=== PATIENT | female | born 1935 | race African-American/Black ===

== ENCOUNTER → 2016-09-05 | Outpatient (CLI) | payer MEDICARE, OTHER ==
[~2016-09-05] MED LIST: ADVI200C9 PO; ALPR0.5T99 PO; FEXO60TA PO; IRONTAB5 PO; NORV2.5T11 PO; OMEP20CA5 PO; OYST500T77 PO; TAB-TAB PO; TAMO10TA2 PO; VITA500T10 PO; VYTO10TA32 PO
[2016-09-05 10:51] LABS: ANION GAP 8 MEQ/L (5-15); AST (GOT) 16 U/L (15-37); BICARBONATE 28.9 MEQ/L (21.0-32.0); BLOOD UREA NITROGEN 16 MG/DL (7-18); CHLORIDE 101 MEQ/L (98-107); GLOMERULAR FILTRATION RATE 50 ML/MIN (>89); GLUCOSE,FASTING 105 MG/DL (74-99); POTASSIUM 3.8 MEQ/L (3.5-5.1); SODIUM (NA) 138 MEQ/L (136-145)
[2016-09-05 11:01] LABS: ALKALINE PHOSPHATASE 99 U/L (45-117); ALT (GPT) 19 U/L (10-53); HDL CHOLESTEROL 46.3 MG/DL (40.0-60.0); LDL CHOLESTEROL 81 MG/DL (0-99); TOTAL BILIRUBIN ADULT 0.4 MG/DL (0.2-1.0)
== END ==
LOC: CLAB 10:05
PROVIDERS: ATTEND Family Medicine
DX: E78.5 Hyperlipidemia, unspecified (principal)
CPT/HCPCS: 36415; 80053; 80061; 84443

== ENCOUNTER → 2017-04-22 | Outpatient (CLI) | payer MEDICARE, OTHER ==
[2017-04-22 10:21] LABS: ANION GAP 8 MEQ/L (5-15); AST (GOT) 17 U/L (15-37); BICARBONATE 27.1 MEQ/L (21.0-32.0); BLOOD UREA NITROGEN 19 MG/DL (7-18); CHLORIDE 101 MEQ/L (98-107); GLOMERULAR FILTRATION RATE 60 ML/MIN (>89); GLUCOSE,FASTING 105 MG/DL (74-99); POTASSIUM 3.5 MEQ/L (3.5-5.1); SODIUM (NA) 136 MEQ/L (136-145)
[2017-04-22 10:25] LABS: ALKALINE PHOSPHATASE 101 U/L (45-117); ALT (GPT) 22 U/L (10-53); HDL CHOLESTEROL 50.4 MG/DL (40.0-60.0); LDL CHOLESTEROL 73 MG/DL (0-99); TOTAL BILIRUBIN ADULT 0.4 MG/DL (0.2-1.0)
== END ==
LOC: CLAB 09:18
PROVIDERS: ATTEND Family Medicine
DX: I10 Essential (primary) hypertension (principal); E78.5 Hyperlipidemia, unspecified
CPT/HCPCS: 36415; 80053; 80061

== ENCOUNTER → 2017-10-21 | Outpatient (CLI) | payer MEDICARE, OTHER ==
[2017-10-21 09:25] LABS: AUTOMATED NEUTROPHIL # 5.1 TH/MM3 (1.8-7.7); BASOPHIL % 0.6 % (0.0-2.0); EOSINOPHIL # 0.6 TH/MM3 (0-0.4); EOSINOPHIL % 7.5 % (0.0-4.0); HEMATOCRIT 34.5 % (35.0-46.0); HEMOGLOBIN 11.5 GM/DL (11.6-15.3); LYMPH % 20.9 % (9.0-44.0); LYMPHOCYTE # 1.7 TH/MM3 (1.0-4.8); MEAN CELL VOLUME 92.2 FL (80.0-100.0); MEAN CORPUSCULAR HEMOGLOBIN 30.9 PG (27.0-34.0); MEAN CORPUSCULAR HGB CONC 33.5 % (32.0-36.0); MEAN PLATELET VOLUME 8.7 FL (7.0-11.0); MONO % 7.1 % (0.0-8.0); MONOCYTE # 0.6 TH/MM3 (0-0.9); NEUT % 63.9 % (16.0-70.0); PLATELET COUNT 302 TH/MM3 (150-450); RED BLOOD COUNT 3.73 MIL/MM3 (4.00-5.30); RED CELL DISTRIBUTION WIDTH 15.6 % (11.6-17.2); WHITE BLOOD COUNT 7.9 TH/MM3 (4.0-11.0)
[2017-10-21 09:37] LABS: ALBUMIN 3.6 GM/DL (3.4-5.0); BICARBONATE 31.9 MEQ/L (21.0-32.0); BLOOD UREA NITROGEN 14 MG/DL (7-18); CALCIUM 9.4 MG/DL (8.5-10.1); CHLORIDE 101 MEQ/L (98-107); CREATININE 1.07 MG/DL (0.50-1.00); GLOMERULAR FILTRATION RATE 59 ML/MIN (>89); GLUCOSE,FASTING 102 MG/DL (74-99); SODIUM (NA) 138 MEQ/L (136-145)
[2017-10-21 09:38] LABS: ALT (GPT) 17 U/L (10-53); AST (GOT) 19 U/L (15-37); CHOLESTEROL 123 MG/DL (120-200); TRIGLYCERIDES 107 MG/DL (42-150)
[2017-10-21 10:03] LABS: ALKALINE PHOSPHATASE 100 U/L (45-117); CHOLESTEROL/ HDL RATIO 2.78 RATIO; HDL CHOLESTEROL 44.1 MG/DL (40.0-60.0); LDL CHOLESTEROL 58 MG/DL (0-99); TOTAL BILIRUBIN ADULT 0.3 MG/DL (0.2-1.0); TOTAL PROTEIN 8.7 GM/DL (6.4-8.2)
[2017-10-21 10:07] LABS: FOLATE GREATER THAN 20.0 NG/ML (3.1-17.5)
[2017-10-21 15:03] LABS: HEMOGLOBIN A1C 6.1 % (4.3-6.0)
== END ==
LOC: CLAB 08:45
PROVIDERS: ATTEND Family Medicine
DX: R41.3 Other amnesia (principal); I10 Essential (primary) hypertension; R73.9 Hyperglycemia, unspecified
CPT/HCPCS: 36415; 80053; 80061; 82607; 82746; 83036; 84443; 85025; 86592

== ENCOUNTER 2017-11-29 15:18 | Emergency (ER) | payer MEDICARE, OTHER ==
[~2017-11-29] VITALS: Ht 162.6 cm; Wt 94.9 kg
[2017-11-29 15:21] VITALS: BP 138/64; PULSE 100; RESP 18; TEMP 97.9; O2SAT 95
[2017-11-29 15:50] VITALS: O2SAT 96
[2017-11-29] MEDS ORDERED: AMOX250S22 PO (15:56)
--- NOTE | 2017-11-29 15:58 | PD ---
HPI Chief Complaint: Skin Problem Time Seen by Provider: 15:40 Travel History International Travel<30 days: No Contact w/Intl Traveler<30days: No Traveled to known affect area: No History of Present Illness HPI Patient 81-year-old female with a history of carpal tunnel release in the left wrist presents emergency department with right wrist swelling and redness for the past 4-5 days. Patient states it felt very similar to her carpal tunnel. But the redness on her skin her primary care physician Dr. Loraine Miranda started the patient on Augmentin. She had a follow-up appointment today and the redness and swelling apparently was minimally worse since she was symptoms here for consideration of IV antibiotics. The patient has not had any fever. She states that Dr. Miranda area of redness and that the redness had progressed past her anais today. Patient denies any chest pain shortness of breath history of gonorrhea chlamydia STD fevers cough congestion or injury. PFSH Past Medical History Arthritis: Yes Blood Disorders: No Cancer: Yes (R BREAST CA) High Cholesterol: Yes Endocrine: No GERD: Yes Genitourinary: No Hypertension: Yes Immune Disorder: No Medical other: Yes (ABDOMINAL HERNIA) Neurologic: No Psychiatric: No Reproductive: No Respiratory: Yes Sleep Apnea: Yes (USES C PAP) Tetanus Vaccination: < 5 Years Influenza Vaccination: Yes ?: Not Past Surgical History Abdominal Surgery: Yes (PARTIAL BOWEL RESECTION) Cholecystectomy: Yes Gynecologic Surgery: Yes (TREV) Hysterectomy: Yes Joint Replacement: Yes (BILATERAL KNEE) Thoracic Surgery: Yes (R. RADICAL MASTECTOMY) Other Surgery: Yes Social History Alcohol Use: No Tobacco Use: No Substance Use: No Allergies-Medications (Allergen,Severity, Reaction): Coded Allergies: acetaminophen (Verified Allergy, Severe, VERY JITTERY, 11/29/17) 10/26/02:PER RN, PERCOCET MAKES PT NAUSEATED oxycodone (Verified Allergy, Severe, VERY JITTERY, 11/29/17) 10/26/02:PER RN, PERCOCET MAKES PT NAUSEATED adhesive (Verified Allergy, Intermediate, SKIN BREAKDOWN, 11/29/17) buspirone (Verified Allergy, Intermediate, DIZZY, 11/29/17) Uncoded Allergies: ANACIN (Allergy, Intermediate, VERTIGO, PALPATATIONS, 07/15/07) Reported Meds & Prescriptions Reported Meds & Active Scripts Active Reported Anti-Fungal (Clotrimazole (Topical)) 1 % Cre Unknown Dose Tramadol (Tramadol HCl) 50 Mg Tab Unknown Dose PO Q8H PRN Iota 3 1000 mg (Iota-3 Fatty Acids) 300 Mg-1,000 Mg Cap Unknown Dose PO DAILY Ibuprofen 600 Mg Tab 600 Mg PO Q6H PRN Centrum (Multiple Vitamins W/ Minerals) 1 Chew 1 Tab CHEW DAILY Triamterene-Hydrochlorothiazide 37.5-25 Mg Cap Unknown Dose PO DAILY Calcium (Oyster Shell) 500 Mg Calcium (1250 Mg) Tab Unknown Dose PO DAILY Nancy Allergy (Fexofenadine HCl) 60 Mg Tab Unknown Dose PO DAILY Ranitidine (Ranitidine HCl) 150 Mg Tab Unknown Dose PO DAILY Pantoprazole (Pantoprazole Sodium) 40 Mg Tab Unknown Dose PO DAILY Alprazolam 0.5 Mg Tab 0.5 Mg PO BID PRN Amox-Clav 250-62.5 mg/5 ml Yomaira (Amoxicillin/Potassium Clav) 250 Mg-62.5 Mg/5 Ml Susp.recon 875 Mg PO BID Review of Systems Except as stated in HPI: all other systems reviewed are Neg Physical Exam Narrative GENERAL: Well-developed well-nourished no obvious distress SKIN: Focused skin assessment warm/dry. Minimal redness about the right wrist, appreciated only on minimal amount of edema and no joint effusion. There is no skin breakdown HEAD: Atraumatic. Normocephalic. EYES: Pupils equal and round. No scleral icterus. No injection or drainage. ENT: No nasal bleeding or discharge. Mucous membranes pink and moist. NECK: Trachea midline. No JVD. CARDIOVASCULAR: Regular rate and rhythm. No murmur appreciated. RESPIRATORY: No accessory muscle use. Clear to auscultation. Breath sounds equal bilaterally. GASTROINTESTINAL: Abdomen soft, non-tender, nondistended. Hepatic and splenic margins not palpable. MUSCULOSKELETAL: No obvious deformities. No clubbing. No cyanosis. Patient has some limited range of motion secondary to pain of flexion extension of the right wrist, pulses motor and sensory intact distally in all 4 extremities, Tinel's sign is weakly positive, patient is not able to attain a Phalen's position. Minimal amount of edema in the right wrist as above is no swelling in the fingers, radial pulses are 2+ equal bilaterally. NEUROLOGICAL: Awake and alert. No obvious cranial nerve deficits. Motor grossly within normal limits. Normal speech. PSYCHIATRIC: Appropriate mood and affect; insight and judgment normal. Data Data Last Documented VS Vital Signs Date Time Temp Pulse Resp B/P (MAP) Pulse Ox O2 Delivery O2 Flow Rate FiO2 11/29/17 18:47 93 16 117/74 (88) 97 Room Air 11/29/17 15:21 97.9 Orders Orders Complete Blood Count With Diff (11/29/17 16:08) Basic Metabolic Panel (Bmp) (11/29/17 16:08) Ecg Monitoring (11/29/17 16:08) Iv Access Insert/Monitor (11/29/17 16:08) Oximetry (11/29/17 16:08) Sodium Chloride 0.9% Flush (Ns Flush) (11/29/17 16:15) Wrist, Complete (Eli2dmx) (11/29/17 ) Consult Infectious Disease (11/29/17 ) Case Management Consult (11/29/17 ) Asp:No Reaction To [facility] (Asp Crit (11/29/17 17:00) Asp: Iv Antibiotics Admit Only (Asp Crit (11/29/17 17:00) Asp: Location Of [facility] Admin (Asp Crit: (11/29/17 17:00) Pharmacy Information ([facility] (11/29/17 17:00) [facility] In[facility] ([facility] Inj) (11/29/17 16:56) (Hub Use Only)Inp Phy Cons/Ref (11/29/17 ) Ed Discharge Order (11/29/17 18:05) Labs Laboratory Tests Test 11/29/17 16:30 White Blood Count 8.5 TH/MM3 Red Blood Count 3.77 MIL/MM3 Hemoglobin 11.1 GM/DL Hematocrit 34.4 % Mean Corpuscular Volume 91.2 FL Mean Corpuscular Hemoglobin 29.5 PG Mean Corpuscular Hemoglobin Concent 32.3 % Red Cell Distribution Width 14.7 % Platelet Count 320 TH/MM3 Mean Platelet Volume 8.7 FL Neutrophils (%) (Auto) 70.8 % Lymphocytes (%) (Auto) 17.6 % Monocytes (%) (Auto) 4.7 % Eosinophils (%) (Auto) 6.6 % Basophils (%) (Auto) 0.3 % Neutrophils # (Auto) 6.0 TH/MM3 Lymphocytes # (Auto) 1.5 TH/MM3 Monocytes # (Auto) 0.4 TH/MM3 Eosinophils # (Auto) 0.6 TH/MM3 Basophils # (Auto) 0.0 TH/MM3 CBC Comment DIFF FINAL Differential Comment Blood Urea Nitrogen 16 MG/DL Creatinine 1.00 MG/DL Random Glucose 121 MG/DL Calcium Level 9.9 MG/DL Sodium Level 138 MEQ/L Potassium Level 3.9 MEQ/L Chloride Level 101 MEQ/L Carbon Dioxide Level 31.3 MEQ/L Anion Gap 6 MEQ/L Estimat Glomerular Filtration Rate 64 ML/MIN MDM Medical Decision Making Medical Screen Exam Complete: Yes Emergency Medical Condition: Yes Differential Diagnosis Infectious arthritis unlikely, reactive arthritis, rheumatoid arthritis, osteoarthritis, cellulitis, gout, carpal tunnel syndrome. Narrative Course Patient room to the emergency department, her labs are reassuring white blood cell count is completely normal. I think that the symptoms probably more from a reactive arthritis than from an infection. I discussed with her primary care physician who would like to err on the side of caution and have IV antibiotics given to the patient. Discussed with the patient that I think placing her in the hospital is not warranted at this time for IV antibiotics alone. If her consider this a failure of outpatient therapy we should consider using [facility]. The patient was counseled on the events that she is agreeable. A dose was given to her in the emergency department per protocol. She is stable for discharge discussed with her follow-up with a hand surgeon. Diagnosis Primary Impression: Wrist pain, right Referrals: Mary Jane Hardin MD Disposition: DISCHARGE HOME Condition: Stable Xavier Huff MD November 29, 2017 15:58
[2017-11-29] MEDS ORDERED: SODIUM CHLORIDE 0.9% FLUSH 10 ML FLUSH IVF PRN (16:15)
--- NOTE | 2017-11-29 16:23 | RADRPT ---
EXAM DATE: 11/29/2017 4:19 PM EDT AGE/SEX: 81 years / Female INDICATIONS: Right wrist redness, swelling, pain for 4 days with no known injury CLINICAL DATA: This is the patient's initial encounter. Patient reports that signs and symptoms have been present for 4 - 6 days and indicates a pain score of 5/10. MEDICAL/SURGICAL HISTORY: None. None. COMPARISON: No prior [facility] exams available for comparison. 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 No evidence of fracture or dislocation. CONCLUSION: Severe arthritic changes. No acute bony findings Electronically signed by: Fermin Vergara MD 11/29/2017 4:22 PM EDT
[2017-11-29 16:38] LABS: BASOPHIL % 0.3 % (0.0-2.0); EOSINOPHIL # 0.6 TH/MM3 (0-0.4); EOSINOPHIL % 6.6 % (0.0-4.0); HEMATOCRIT 34.4 % (35.0-46.0); HEMOGLOBIN 11.1 GM/DL (11.6-15.3); LYMPH % 17.6 % (9.0-44.0); LYMPHOCYTE # 1.5 TH/MM3 (1.0-4.8); MEAN CELL VOLUME 91.2 FL (80.0-100.0); MEAN CORPUSCULAR HEMOGLOBIN 29.5 PG (27.0-34.0); MEAN CORPUSCULAR HGB CONC 32.3 % (32.0-36.0); MEAN PLATELET VOLUME 8.7 FL (7.0-11.0); MONO % 4.7 % (0.0-8.0); MONOCYTE # 0.4 TH/MM3 (0-0.9); NEUT % 70.8 % (16.0-70.0); PLATELET COUNT 320 TH/MM3 (150-450); RED BLOOD COUNT 3.77 MIL/MM3 (4.00-5.30); RED CELL DISTRIBUTION WIDTH 14.7 % (11.6-17.2); WHITE BLOOD COUNT 8.5 TH/MM3 (4.0-11.0)
[2017-11-29 16:48] LABS: BICARBONATE 31.3 MEQ/L (21.0-32.0); CALCIUM 9.9 MG/DL (8.5-10.1)
[2017-11-29] MEDS ORDERED: PANT40TA3 PO (16:53)
[2017-11-29] MEDS ORDERED: TRIA37.53 PO (16:53)
[2017-11-29] MEDS ORDERED: ALPR0.5T3 PO (16:53)
[2017-11-29] MEDS ORDERED: TRAM50TA PO ×2 (16:53→16:56)
[2017-11-29] MEDS ORDERED: CALC12502 PO (16:53)
[2017-11-29] MEDS ORDERED: ALLE60TA PO (16:53)
[2017-11-29] MEDS ORDERED: RANI150T PO (16:53)
[2017-11-29] MEDS ORDERED: IBUP-232 PO (16:56)
[2017-11-29] MEDS ORDERED: OMEG100010 PO (16:56)
[2017-11-29] MEDS ORDERED: CENTCHW4 CHEW (16:56)
[2017-11-29] MEDS ORDERED: DALBAVANCIN INJ 1,500 MG in DEXTROSE 5% IN WATE 500 ML INJ 500 ML IV STA ×2 (16:56)
[2017-11-29] MEDS ORDERED: ASP: No known hypersensitivity to Vanco, Telavancin, Dalbavancin OTHER ONE (17:00)
[2017-11-29] MEDS ORDERED: PHARMACY INFORMATION XX ONE (17:00)
[2017-11-29] MEDS ORDERED: ANTI1CRE6 (17:00)
[2017-11-29] MEDS ORDERED: ASP: Only reason for admit - IV antibiotics OTHER ONE (17:00)
[2017-11-29] MEDS ORDERED: ASP: Location of Dalbavancin administration OTHER ONE (17:00)
[2017-11-29 17:04] VITALS: BP 117/66; PULSE 93; RESP 16; O2SAT 95
[2017-11-29 18:47] VITALS: BP 117/74; PULSE 93; RESP 16; O2SAT 97
[2017-11-29] MEDS ORDERED: TRAM50 PO (19:18)
== END 2017-11-29 19:44 | disposition home or self-care (01) ==
LOC: PHED 15:18
DX: M25.531 Pain in right wrist (principal); I10 Essential (primary) hypertension; E78.00 Pure hypercholesterolemia, unspecified; M19.90 Unspecified osteoarthritis, unspecified site; K21.9 Gastro-esophageal reflux disease without esophagitis; G47.30 Sleep apnea, unspecified; Z85.3 Personal history of malignant neoplasm of breast
CPT/HCPCS: 73110; 80048; 85025; 96365; 99284; J0875; J7060